=== PATIENT | female | born 1995 | race Caucasian/White ===

== ENCOUNTER 2020-06-28 10:31 | Emergency (ER) | payer MEDICAID, OTHER ==
[~2020-06-28] VITALS: Ht 160 cm; Wt 56.8 kg
[~2020-06-28 10:31] MED LIST: NO HOME MEDS; PHEN-786 PO
--- NOTE | 2020-06-28 10:49 | NUR ---
PT TAKEN TO ROOM 16 FROM TRIAGE WITH TECH.
--- NOTE | 2020-06-28 11:00 | NUR ---
Patient appares to be resting comfortably at this time
[2020-06-28] MEDS ORDERED: GABA800T11 PO (11:18)
[2020-06-28 11:31] LABS: BASOPHILS % (AUTO) 0.7 % (0-1); EOSINOPHILS % (AUTO) 0.6 % (0-6); HEMATOCRIT 44.6 % (35.0-45.0); HEMOGLOBIN 15.1 g/dl (12.0-16.0); LYMPHOCYTES # (AUTO) 1.1 X10'3 (1.1-4.8); MEAN CORPUSCULAR HEMOGLOBIN 31.8 PG (27.0-31.0); MEAN CORPUSCULAR HGB CONC 33.8 g/dL (33.0-36.5); MEAN CORPUSCULAR VOLUME 94.3 FL (78-98); MEAN PLATELET VOLUME 8.8 FL (7.4-10.4); MONOCYTES # (AUTO) 0.5 X10'3 (0-0.9); NEUTROPHILS % (AUTO) 74.7 % (42-75); PLATELET COUNT 220 X10'3 (140-440); RED BLOOD COUNT 4.73 X10'6 (4.20-5.60); RED CELL DISTRIBUTION WIDTH 13.3 % (11.5-14.5); WHITE BLOOD COUNT 6.7 X10'3 (4.5-11.0)
[2020-06-28 11:40] LABS: ALANINE AMINOTRANSFERASE 23 U/L (12-78); ALBUMIN 4.2 G/DL (3.4-5.0); ALBUMIN/GLOBULIN RATIO 1.4 (1.1-1.5); ALKALINE PHOSPHATASE 57 IU/L (46-116); ANION GAP 8 (8-16); ASPARTATE AMINO TRANSFERASE 17 U/L (10-37); BILIRUBIN,TOTAL 0.7 MG/DL (0.1-1.0); BLOOD UREA NITROGEN 7 MG/DL (7-18); BUN/CREATININE RATIO 8.6 (6.6-38.0); CALCIUM 9.1 MG/DL (8.5-10.1); CHLORIDE 104 MMOL/L (99-107); CREATININE 0.81 MG/DL (0.40-0.90); GLUCOSE 98 MG/DL (70-104); POTASSIUM 3.8 MMOL/L (3.5-5.1); SODIUM 138 MMOL/L (135-145); TOTAL CARBON DIOXIDE 25.9 MMOL/L (24-32); TOTAL PROTEIN 7.3 G/DL (6.4-8.2); eGFR 85 ML/MIN
--- NOTE | 2020-06-28 11:45 | NUR ---
Pt moved from ED bed 16 to ED bed 8 to be monitored by a sitter and continue the care in the ED.
[2020-06-28 11:54] LABS: ETHANOL < 0.010 GM/DL (0.0-0.010)
[2020-06-28 11:55] LABS: URINE HCG NEGATIVE (NEG)
[2020-06-28 11:58] LABS: CLARITY,URINE CLEAR (Clear); COLOR,URINE YELLOW (Yellow); GLUCOSE, URINE NEGATIVE (Neg); KETONES,URINE 15 mg/dl (Neg); LEUKOCYTE ESTERASE ,URINE NEGATIVE (Neg); NITRITES, URINE NEGATIVE (Neg); OCCULT BLOOD,URINE NEGATIVE (Neg); PROTEIN,URINE NEGATIVE (Neg); UA COLLECTION TYPE CLN CATCH MIDSTREAM; UROBILINOGEN,URINE 0.2 E.U/dL (0.2-1.0)
[2020-06-28 12:10] LABS: URINE AMPHETAMINE SCREEN NEGATIVE (Neg); URINE BARBITUATE SCREEN NEGATIVE (Neg); URINE BENZODIAZEPINES SCREEN NEGATIVE (Neg); URINE CANNABINOID SCREEN POSITIVE (Neg); URINE COCAINE SCREEN NEGATIVE (Neg); URINE METHADONE SCREEN NEGATIVE (Neg); URINE OPIATE SCREEN NEGATIVE (Neg); URINE PHENCYCLIDINE SCREEN NEGATIVE (Neg)
--- NOTE | 2020-06-28 12:48 | NUR ---
PACKET FAXED TO [facility]
--- NOTE | 2020-06-28 13:00 | NUR ---
Patient appears to be resting comfortably at this time
--- NOTE | 2020-06-28 14:23 | NUR ---
pt asking to call mom, phone provided. Will remove the phone once completed.
--- NOTE | 2020-06-28 14:26 | NUR ---
Pt returned phone
--- NOTE | 2020-06-28 14:56 | NUR ---
Pt very tearful at this time. Pt states, "I just feel really guilty for taking up a bed right now since COVID is so bad." Primary nurse expressed that pt's mental health is just as important as anyone else's health. Pt. expressed gratitude and agreed. Pt. now resting comfortably
[2020-06-28] MEDS: gabapentin 400mg capsule PO SCH (16:05)
--- NOTE | 2020-06-28 17:13 | NUR ---
pt appears to be sleeping at this time
--- NOTE | 2020-06-28 18:30 | NUR ---
Patient lying in her bed and appears to be resting comfortably. No apparent s/s of distress noted
--- NOTE | 2020-06-28 21:14 | NUR ---
Pt has been accepted [facility] and will be transported tomorrow AM
[2020-06-28] MEDS ORDERED: nicotine 7mg patch - 24hr TD ONE (22:45)
[2020-06-29 06:07] VITALS: BP 122/78
[2020-06-29] MEDS ORDERED: nicotine 7mg patch - 24hr TD SCH (08:00)
[2020-06-29] MEDS: gabapentin 400mg capsule PO SCH ×2 (08:24)
--- NOTE | 2020-06-29 08:24 | NUR ---
PT GIVEN MORNING MEDS AND PORTABLE PHONE TO CALL HER MOTHER.
--- NOTE | 2020-06-29 08:25 | NUR ---
PT EATING BREAKFAST.
--- NOTE | 2020-06-29 08:53 | NUR ---
[facility] [employer] ETA [id number]
--- NOTE | 2020-06-29 10:04 | NUR ---
WELL SERVICING RIG OPERATOR FROM [facility] ARRIVES TO TAKE PT TO [facility]. PT GIVEN ALL HER BELONGINGS AND ONE HOME MEDICATION BOTTLE. PT DRESSED AND READY TO GO. ESCORT PT OUT TO THE DRIVERS CAR. PT VERY COOPERATIVE..
== END 2020-06-29 10:09 ==
LOC: ER 10:32
DX: R45.851 Suicidal ideations (principal); R44.0 Auditory hallucinations; Z20.828 Contact with and (suspected) exposure to other viral communicable diseases; F12.90 Cannabis use, unspecified, uncomplicated; Z79.899 Other long term (current) drug therapy
CPT/HCPCS: 36415; 80053; 80305; 80320; 81003; 81025; 84443; 85025; 87635; 99285; C9803

== ENCOUNTER 2020-10-02 20:25 | Emergency (ER) | payer OTHER ==
[~2020-10-02] VITALS: Ht 162.6 cm; Wt 55.6 kg
[~2020-10-02 20:25] MED LIST changes: +GABA800T11 PO; -NO HOME MEDS; -PHEN-786 PO
[2020-10-02 20:27] VITALS: BP 99/72
[2020-10-02] MEDS ORDERED: TETanus/Pertussis (Acell)/Diphther VAC/PF (Tdap-Adult) 0.5ml syringe IMVAC ONE (23:10)
== END 2020-10-02 23:18 | disposition home or self-care (01) ==
LOC: ER 20:26
DX: S51.811A Laceration without foreign body of right forearm, initial encounter (principal); M79.7 Fibromyalgia; F12.90 Cannabis use, unspecified, uncomplicated; Z79.899 Other long term (current) drug therapy; W26.8XXA Contact with other sharp object(s), not elsewhere classified, initial encounter; Y93.89 Activity, other specified; Y92.89 Other specified places as the place of occurrence of the external cause; Y99.8 Other external cause status
CPT/HCPCS: 12002; 90471; 90715; 99283; 99285

== ENCOUNTER 2023-03-01 17:38 | Emergency (ER) | payer BC, OTHER ==
[~2023-03-01] VITALS: Ht 160 cm; Wt 74.6 kg
[2023-03-01 17:41] VITALS: BP 124/73; PULSE 60; RESP 16; TEMP 99; O2SAT 97
[2023-03-01] MEDS ORDERED: azithromycin 250mg tablet PO ONE (19:40)
[2023-03-01] MEDS ORDERED: CefTRIAXone 500MG IM Kit w/LIDOcaine IM ONE (19:40)
[2023-03-01 20:58] LABS: HIV ANTIBODY 1&2 RAPID NON-REACTIVE (Neg)
[2023-03-04 11:38] LABS: CHLAMYDIA TRACHOMATIS, NAA Negative (Negative)
== END 2023-03-01 20:59 | disposition home or self-care (01) ==
LOC: ER 17:39
DX: A64 Unspecified sexually transmitted disease (principal); F12.90 Cannabis use, unspecified, uncomplicated; M79.7 Fibromyalgia; Z79.899 Other long term (current) drug therapy
CPT/HCPCS: 36415; 86592; 86703; 87491; 87591; 96372; 99283; J0696

== ENCOUNTER 2024-07-13 11:56 | Emergency (ER) | payer OTHER ==
[~2024-07-13] VITALS: Ht 160 cm; Wt 65.9 kg
[~2024-07-13 11:56] MED LIST changes: +GABA-1555 PO; -GABA800T11 PO
[2024-07-13 12:03] VITALS: BP 108/65; PULSE 74; RESP 16; TEMP 97.5; O2SAT 98
[2024-07-13] MEDS: naproxen 500mg tablet PO ONE (13:17)
[2024-07-13] MEDS: ondansetron 4mg rapidly disintigrating tab PO ONE (13:17)
== END 2024-07-13 14:15 | disposition home or self-care (01) ==
LOC: ER 11:56
DX: M25.511 Pain in right shoulder (principal); R51.9 Headache, unspecified; M79.7 Fibromyalgia; F12.90 Cannabis use, unspecified, uncomplicated; V89.2XXA Person injured in unspecified motor-vehicle accident, traffic, initial encounter; Y93.89 Activity, other specified; Y92.410 Unspecified street and highway as the place of occurrence of the external cause; Y99.8 Other external cause status
CPT/HCPCS: 99283